=== PATIENT | male | born 1970 | race Caucasian/White ===

== ENCOUNTER 2016-12-23 19:29 | Emergency (ER) | payer OTHER ==
[2016-12-23 19:42] VITALS: BP 157/94
--- NOTE | 2016-12-23 20:40 | RAD ---
INDICATION: Left thumb injury. TECHNIQUE: 3 views of the left thumb were obtained. FINDINGS: There is a small amount of air within the nailbed. The bones are in normal alignment. No fracture is seen. No radiopaque foreign body is noted. Joint spaces appear maintained. IMPRESSION: NO EVIDENCE FOR RADIO OPAQUE FOREIGN BODY.
[2016-12-23] MEDS ORDERED: Ciprofloxacin TAB* 500 MG PO ONE (21:00)
== END 2016-12-23 21:12 | disposition home or self-care (01) ==
LOC: ED 19:29
DX: S61.112A Laceration without foreign body of left thumb with damage to nail, initial encounter (principal); X58.XXXA Exposure to other specified factors, initial encounter; Y93.9 Activity, unspecified; Y92.9 Unspecified place or not applicable; Y99.9 Unspecified external cause status
CPT/HCPCS: 99282; A9270-GY